=== PATIENT | female | born 1955 | race Caucasian/White ===

== ENCOUNTER 2017-12-13 09:38 | Emergency (ER) | payer OTHER ==
--- NOTE | 2017-12-13 10:11 | EDPHY ---
HPI/HX/ROS/PE/MDM Narrative: CHIEF COMPLAINT: "I've been sick for 4 days," headache, myalgias, hyperglycemia HPI: The patient is a 62 y/o female with diabetes and renal cell carcinoma post nephrectomy arriving with her family member complaining of malaise including a headache and myalgias onset 4 days ago. She's also had dysuria for a couple weeks and has a history of prior UTIs. Her symptoms were not improving so she went to urgent care this morning. There her BGL there was high at 481 and she was referred here for evaluation. She says her BGL was within normal ranges yesterday at 141 and she took her normal 24 units of insulin this morning. She reports she is compliant with her medications. She denies cough, abdominal pain , vomiting, diarrhea, dyspnea, chest pain, or other complaints. She notes she had a sore throat earlier in the week that has resolved. REVIEW OF SYSTEMS: Aside from elements discussed in the HPI, a comprehensive 10-point review of systems was reviewed and is negative. PMH: Diabetes, prior UTIs, renal cell carcinoma, nephrectomy SOCIAL HISTORY: Family member at bedside. PHYSICAL EXAM: General:Patient is alert, in no acute distress. ENT:Eyes are normal to inspection. ENT inspection normal. Neck: Normal inspection. Full range of motion. Respiratory:No respiratory distress. Breath sounds normal bilaterally. Cardiovascular: Regular rate and rhythm. Strong peripheral pulses. Normal cap refill. Abdomen:The abdomen is nontender to palpation. There are no peritoneal signs. Back: Normal to inspection. No tenderness to palpation. Skin: Normal color. No rash. Warm and dry. Extremities: Normal appearance. Full range of motion. Neuro: Oriented x3. Normal motor function. Normal sensory function. ED Course: This is a 62 y/o female with diabetes and history of renal cell carcinoma post nephrectomy who presents with a 4-day history of malaise, myalgias, and headache in the setting of dysuria for a couple weeks. She was acutely hyperglycemic at urgent care this morning despite compliant insulin use and was referred to the ED for evaluation. Exam is unremarkable. Suspect UTI. Plan for IV, labs, UA. 1L IV NS ordered. Chest x-ray negative. Labs apart from elevated BGL are unremarkable. Repeat BGL is 370. 1200: Reevaluated patient and discussed findings. She reports she ate a large scone just before having her BGL tested and believes that caused the spike in her sugar. MDM: This patient presents with hyperglycemia but there are no signs of acidosis or ketosis. The patient complains of vague flu-like symptoms but she is afebrile and CXR and UA are negative. She has no abdominal complaints. The patient states she has been complaint with daily insulin but may have had a large sugary scone prior to getting her blood drawn. She would like to go home. We discussed strict return precaution and patient understands she is at risk of developing DKA. - Data Points Imaging Results: Imaging Impressions Chest X-Ray 12/13/17 10:35 Impression: No pneumonia. Stable since 2011. Imaging: I viewed and interpreted images myself Laboratory Results: 12/13/17 12/13/17 12/13/17 11:52 10:45 10:45 POC Hgb 13.9 gm/dL gm/dL (12.6-16.3) POC Hct 41 % % (38-47) Puncture Site NONE GIVEN Patient Temperature 37.0 DEGREES DEGREES VBG pH 7.36 (7.31-7.42) VBG HCO3 22 mEQ/L mEQ/L (22-26) VBG Total CO2 23 mEq/L mEq/L (21-27) VBG O2 Saturation 93 % H % (65-75) VBG Base Excess -2.8 mEq/L L mEq/L (-2.5-2.5) Mixed VBG pCO2 39 mmHg L mmHg (40-44) Mixed VBG pO2 67 mmHG H mmHG (35-40) POC Sodium 138 mEq/L mEq/L (135-145) POC Potassium 6.1 mEq/L H mEq/L (3.3-5.0) POC Chloride 105 mEq/L mEq/L (97-110) POC BUN 28 mg/dL H mg/dL (7-23) POC Creatinine 0.6 mg/dL mg/dL (0.6-1.0) POC Glucose 370 mg/dL H mg/dL (70-100) Beta-Hydroxybutyrate 0.08 mmol/L mmol/L (0.02-0.27) Urine Color Urine Appearance Urine pH Ur Specific [facility] Urine Protein Urine Ketones Urine Blood Urine Nitrate Urine Bilirubin Urine Urobilinogen Ur Leukocyte Esterase Urine RBC Urine WBC Ur Epithelial Cells Urine Glucose 12/13/17 10:00 POC Hgb POC Hct Puncture Site Patient Temperature VBG pH VBG HCO3 VBG Total CO2 VBG O2 Saturation VBG Base Excess Mixed VBG pCO2 Mixed VBG pO2 POC Sodium POC Potassium POC Chloride POC BUN POC Creatinine POC Glucose Beta-Hydroxybutyrate Urine Color YELLOW Urine Appearance CLEAR Urine pH 5.0 (5.0-7.5) Ur Specific [facility] 1.030 (1.002-1.030) Urine Protein NEGATIVE (NEGATIVE) Urine Ketones NEGATIVE (NEGATIVE) Urine Blood NEGATIVE (NEGATIVE) Urine Nitrate NEGATIVE (NEGATIVE) Urine Bilirubin NEGATIVE (NEGATIVE) Urine Urobilinogen 2.0 EU H EU (0.2-1.0) Ur Leukocyte Esterase NEGATIVE (NEGATIVE) Urine RBC 1-3 /hpf /hpf (0-3) Urine WBC 1-3 /hpf /hpf (0-3) Ur Epithelial Cells NONE SEEN /lpf /lpf (NONE-1+) Urine Glucose 3+ H (NEGATIVE) Medications Given: Discontinued Medications Sodium Chloride (Ns) 1,000 mls @ 0 mls/hr IV EDNOW ONE; Wide Open PRN Reason: Protocol Stop: 12/13/17 11:07 Last Admin: 12/13/17 11:12 Dose: 1,000 mls Point of Care Test Results: Chemistry 12/13/17 11:52 POC Sodium 138 mEq/L mEq/L (135-145) POC Potassium 6.1 mEq/L H mEq/L (3.3-5.0) POC Chloride 105 mEq/L mEq/L (97-110) POC BUN 28 mg/dL H mg/dL (7-23) POC Creatinine 0.6 mg/dL mg/dL (0.6-1.0) POC Glucose 370 mg/dL H mg/dL (70-100) ISTAT H&H 12/13/17 11:52 POC Hgb 13.9 gm/dL gm/dL (12.6-16.3) POC Hct 41 % % (38-47) General Time Seen by Provider: 12/13/17 10:02 Initial Vital Signs: Initial Vital Signs Temperature (C) 36.5 C 12/13/17 09:44 Heart Rate 75 12/13/17 09:44 Respiratory Rate 16 12/13/17 09:44 Blood Pressure 162/112 H 12/13/17 09:44 O2 Sat (%) 97 12/13/17 09:44 O2 Delivery Mode Room Air Allergies/Adverse Reactions: insulin glargine [From Lantus U-100 Insulin] Allergy (Verified 12/13/17 09:42) Sulfa (Sulfonamide Antibiotics) Allergy (Verified 11/30/11 17:45) Home Medications: Medication Instructions Recorded Atorvastatin Calcium 12/13/17 Levemir 12/13/17 Meloxicam 12/13/17 Trulicity 12/13/17 Departure - Departure Disposition: Home, Routine, Self-Care Clinical Impression: Hyperglycemia Condition: Good Instructions: Diabetic Hyperglycemia (ED) Referrals: Kaylee Guerrero MD [Primary Care Provider] - As per Instructions Report Scribed for: Jovanni Hanson Report Scribed by: Minoo Verdin Date of Report: 12/13/17 Time of Report: 10:11 Physician Review and Approval Statement: Portions of this note were transcribed by an ED scribe. I personally performed the history, physical exam, and medical decision making; and confirm the accuracy of the information in the transcribed note.
[2017-12-13] MEDS ORDERED: NS 1,000 ML IV ONE (11:06)
[2017-12-13] MEDS ORDERED: INSULIN REGULAR HUMAN 100 UNIT/ML UNIT SC ONE (12:04)
[2017-12-13 12:23] VITALS: BP 154/103
== END 2017-12-13 12:22 | disposition home or self-care (01) ==
LOC: SUPCPDRO 09:38
DX: E11.65 Type 2 diabetes mellitus with hyperglycemia (principal); E86.9 Volume depletion, unspecified; Z79.4 Long term (current) use of insulin
CPT/HCPCS: 82435-PO; 82565-PO; 82947-PO; 84132-PO; 84295-PO; 84520-PO; 85014-PO; J1815